=== PATIENT | male | born 2005 | race Caucasian/White ===

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

== ENCOUNTER 2024-05-06 18:02 | Emergency (ER) | payer OTHER, SELFPAY | END 2024-05-06 19:30 | disposition home or self-care (01) | LOC: MADERS 18:02 | DX: K04.7 Periapical abscess without sinus (principal); K02.9 Dental caries, unspecified; Z55.6 Problems related to health literacy | CPT/HCPCS: 99283 ==